=== PATIENT | female | born 1995 | race African-American/Black ===

== ENCOUNTER 2019-02-20 18:14 | Observation (INO) | payer BC, SELFPAY ==
[2019-02-20 20:50] VITALS: BMI 32.0
--- NOTE | 2019-03-28 11:41 | PM.OBTRLD ---
OB - Triage/Final Diagnosis Final Diagnosis (1) contractions: Code(s): O47.9 - False labor, unspecified Status: Acute
== END 2019-02-20 21:00 | disposition home or self-care (01) ==
PROVIDERS: Admitting Provider Obstetrics & Gynecology; Visit Provider Obstetrics & Gynecology
DX: O47.03 False labor before 37 completed weeks of gestation, third trimester (principal); Z3A.36 36 weeks gestation of pregnancy
CPT/HCPCS: G0378; G0379

== ENCOUNTER 2019-03-13 05:40 | Inpatient (IN) | payer BC, SELFPAY ==
[2019-03-13] VITALS (128 sets, daily range): BP systolic 88–136; BP diastolic 40–91; PULSE 60–159; RESP 17; TEMP 36.7–37.6; O2SAT 91–100; BMI 33.2
[2019-03-13 06:47] LABS: Basophils Percent Auto 0.2 % (0.2-1.2); Eosinophils Absolute Auto 0.2 K/mm3 (0-0.3); Eosinophils Percent Auto 2.1 % (0-4.4); Hematocrit 34.6 % (37.0-47.0); Hemoglobin 11.1 g/dL (12.0-15.0); Immature Granulocyte Absolute 0.07 K/mm3 (0.00-0.031); Immature Granulocyte Percent A 0.8 % (0-0.5); Lymphocytes Absolute Auto 1.93 K/mm3 (0.9-3.2); Mean Corpuscular HGB Conc 32.1 g/dl (32-36); Mean Corpuscular Hemoglobin 26.6 pg (26-34); Monocytes Absolute Auto 0.7 K/mm3 (0.1-0.6); Monocytes Percent Auto 7.5 % (2.6-8.5); Neutrophils Absolute Auto 6.3 K/mm3 (1.3-6.7); Neutrophils Percent Auto 68.4 % (45.5-73.1); Platelet Count Result 256 k/mm3 (150-375); Red Blood Count 4.17 M/mm3 (4.2-5.4); Red Cell Distribution Width 14.6 % (11.5-14.5); White Blood Count 9.2 K/mm3 (4.5-10.0)
[2019-03-13] MEDS: LACTATED RINGERS 1,000 ML 125 ML IV CONT ×3 (07:02→15:10)
[2019-03-13] MEDS: AMPICILLIN 2 GM/NS 100 ML 2 GM/100 ML BAG IVPB (07:18)
--- NOTE | 2019-03-13 07:28 | WPDOBADMIT ---
Obstetrics - Admit Note Admission Note: record reviewed. No pertinent additions to the history and/or any subsequent changes in the physical findings that are not consistent with the expected course of the were found. Additions to the history and/or subsequent changes in the physical findings follow. G1 at 39+2 for induction of labor. Cervix tight 80/-2. AROM with copious clear fluid. GBS + so continue antibiotics and continue pitocin..
--- NOTE | 2019-03-13 07:52 | LDADM ---
This patient, Carli Taylor, was admitted to Labor/Delivery/Recovery 105 on 03/13/19 at 05:40. Plans for labor, pain management and were discussed with patient. Patient/family oriented to hospital policies and general routines including ID bracelet, bed and alarms, visiting hours, pain management, procedures, bathroom and other care routines, personal items, smoking policy, room service/diet and guest tray routines, infant security routines, and visiting hours. Patient/Family are encouraged to report perceived risks to care and to ask questions if they do not understand what they are told or what they should do. See OBIX for further documentation.
--- NOTE | 2019-03-13 11:35 | WPDANESEPP ---
Anes - Eval Pre Procedure Procedure: Labor Epidural Date/Time: 03/13/19 11:35 Surgeon: Jacky Preop Diagnosis: Labor Pain Pre Op Diagnosis: IOL Patient Data Age: 24 Gender: F Height: 5 ft 5 in Weight: 90.5 kg Last Vital Signs Temp 36.7 C 03/13/19 07:51 Pulse 88 03/13/19 11:34 BP 106/64 03/13/19 11:34 Pulse Ox 98 03/13/19 11:32 Allergies Allergy/AdvReac Type Severity Reaction Status Date / Time coconut Allergy Intermediate Wheezing Verified 02/12/19 04:19 cat dander Allergy Wheezing Verified 02/15/19 12:59 Home Medications Medication Instructions Recorded Confirmed Type sertraline 50 mg PO DAILY 01/30/19 03/13/19 History PNV cmb#95-ferrous fumarate-FA 1 tablet PO DAILY 02/12/19 03/13/19 History [] ferrous sulfate [Iron (ferrous 325 mg PO DAILY 02/15/19 02/20/19 History sulfate)] Laboratory Tests 03/13/19 03/13/19 03/13/19 06:41 06:41 06:41 WBC 9.2 K/mm3 K/mm3 (4.5-10.0) RBC 4.17 M/mm3 L M/mm3 (4.2-5.4) Hgb 11.1 g/dL L g/dL (12.0-15.0) Hct 34.6 % L % (37.0-47.0) MCV 83.0 fl fl (80-100) MCH 26.6 pg pg (26-34) MCHC 32.1 g/dl g/dl (32-36) RDW 14.6 % H % (11.5-14.5) Plt Count 256 k/mm3 k/mm3 (150-375) MPV 11.0 fl H fl (7.4-10.4) Immature Gran % (Auto) 0.8 % H % (0-0.5) Neut % (Auto) 68.4 % % (45.5-73.1) Lymph % (Auto) 21.0 % % (18.3-44.2) [place] % (Auto) 7.5 % % (2.6-8.5) Eos % (Auto) 2.1 % % (0-4.4) Baso % (Auto) 0.2 % % (0.2-1.2) Lymph # (Auto) 1.93 K/mm3 K/mm3 (0.9-3.2) [place] # (Auto) 0.7 K/mm3 H K/mm3 (0.1-0.6) Eos # (Auto) 0.2 K/mm3 K/mm3 (0-0.3) Baso # (Auto) 0.0 K/mm3 K/mm3 (0.0-0.1) Abs Immat Gran (auto) 0.07 K/mm3 H K/mm3 (0.00-0.031) Absolute Neuts (auto) 6.3 K/mm3 K/mm3 (1.3-6.7) Absolute Nucleated RBC 0.0 K/mm3 K/mm3 (0.0-0.012) Nucleated RBC % 0.0 % % (0.0-0.2) RPR Pending Blood Type A Positive Antibody Screen Negative : gestational age (LYLA 03/18/19) Patient hx anesthesia problems: none Family hx anesthesia problems: none [facility] Family History Family History Other Unknown family medical history Social History Social History Smoking status: Never smoker Substance use: never Gender identity (if verbalized by the patient): Female Spiritual care concerns: No Exam Day of Procedure 03/13/19 11:35 Patient weight: overweight Heart: regular rate and rhythm Lungs: normal air movement Airway: Mallampati scale class II Neurological: alert and oriented
[2019-03-13] MEDS: AMPICILLIN 1 GM/NS 50 ML 1 GM/50 ML BAG IVPB ×2 (12:12→15:50)
[2019-03-13] MEDS: SODIUM CHLORIDE 0.9% IV 300 ML 600 ML I-UTERINE (15:10)
--- NOTE | 2019-03-13 16:29 | PM.OBPRVD ---
OB - Delivery Note Procedure Delivery date: 03/13/19 Procedure: events: Labor Induction Intrapartal events: None Induction method: AROM and per pitocin protocol Delivery monitor: external FHT Route of delivery: Laceration description: Perineal - 1st Degree (right suture, left more superficial and hemostatic without sutures) Delivery repair: vicryl (3-0 perineum and right periurethral) Specimen: No Estimated blood loss (mL): 142 Anesthesia type: Epidural Disposition: floor Baby Date of : 03/13/19 Time of : 16:10 Weeks of gestation at delivery: 39 gender: Female Weight (pounds): 7 Weight (ounces): 9 position: Right Occiput Anterior Placenta delivery description: Spontaneous cord vessel description: 3 Vessels and Clamped/Cut score one minute: 8 score five minutes: 9
[2019-03-13] MEDS: ACETAMINOPHEN 325 MG TABLET 650 MG PO (18:15)
[2019-03-13] MEDS: WITCH HAZEL 40 PADS 1 PAD TOPICAL (18:59)
[2019-03-13] MEDS: BENZOCAINE 20% AER SPR (*SP) 56 GM CAN 1 SPRAY TOPICAL (18:59)
--- NOTE | 2019-03-13 19:13 | OBPPTRN ---
Patient transferred to post room #292 via (wheelchair) - infant arrived via crib. Support person present. Oriented to unit, room, information board, rooming in, admission packet and security measures. Patient verbalizes understanding.
[2019-03-13] MEDS: IBUPROFEN 600 MG TABLET PO (20:10)
[2019-03-14 05:51] LABS: Hematocrit 34.6 % (37.0-47.0); Hemoglobin 11.2 g/dL (12.0-15.0)
[2019-03-14 07:16] LABS: Rapid Plasma Reagin Non-Reactive (NonReactive)
--- NOTE | 2019-03-14 07:38 | PM.OBPNVD ---
OB - PN: Subj Subjective Date/time seen: 03/14/19 07:38 OB - PN: Obj Data Labs CBC & Chem 7: 03/14/19 05:06 Labs: Laboratory Results - last 24 hr 03/13/19 03/13/19 03/14/19 06:41 06:41 05:06 Hgb 11.2 L Hct 34.6 L RPR Non-reactive Blood Type A Positive Antibody Screen Negative OB - PN A/P Plan day: 1 Plan: routine care Time Spent With Patient Time: Total time spent is greater than 50% in coordination of care (as documented) at patient's floor/unit and/or counseling patient: Review of Systems Review of Systems: All systems reviewed & are unremarkable except as noted in HPI and below Exam Const: General: comfortable Resp: Effort & Inspection: normal respiratory effort Psych: Appearance: grossly normal Mental Status: mental status grossly normal Affect: normal affect
--- NOTE | 2019-03-14 08:00 | PC.NURSE ---
PT introductions made and plan of care discussed per post , pain management, breast/bottle feeding, daily care activities. PT verbalized understanding of such care.
[2019-03-14 08:50] VITALS: BP 107/65; PULSE 94; RESP 16; TEMP 36.6; O2SAT 98
[2019-03-14] MEDS: SERTRALINE HCL 50 MG TABLET PO (08:55)
[2019-03-14] MEDS: MULTIVIT/MIN/PREN/FOL AC/IRON TABLET 1 TAB PO (08:55)
[2019-03-14] MEDS: DOCUSATE SODIUM 100 MG CAPSULE PO ×2 (08:56→17:32)
[2019-03-14] MEDS: IBUPROFEN 600 MG TABLET PO ×3 (08:56→22:15)
--- NOTE | 2019-03-14 09:27 | WPDANLDPN2 ---
Anes-Prog Note L&D Date/Time: 03/14/19 09:27 Comfortable throughout: labor and delivery Neuraxial method: epidural Epidural/Spinal procedure site: clean & non-tender Neuro status: Neuro function grossly intact. Cardiovascular status: normal Respiratory status: normal Airway patency: baseline Mental status: baseline Post-Op hydration status: normal Vital Signs: Last Vital Signs Temp 36.8 C 03/13/19 19:45 Pulse 95 03/13/19 19:45 Resp 17 03/13/19 19:45 BP 122/62 03/13/19 19:45 Pulse Ox 100 03/13/19 16:05 I/O: Intake & Output 03/13/19 03/14/19 03/14/19 23:59 07:59 15:59 Intake Total 1550 Output Total 85 Balance 1465 Post-procedural complaints: none Patient feedback: Patient satisfied with anesthetic care.
--- NOTE | 2019-03-14 17:00 | PC.NURSE ---
Patient viewed the discharge video Mother & Baby Care, The First Two Weeks . Patient was given the opportunity and encouraged to ask questions. Patient verbalized understanding of information shared and has been given the mother/baby guide for home reference.
[2019-03-14 19:37] VITALS: BP 111/58; PULSE 76; RESP 18; TEMP 36.8
[2019-03-15 07:30] VITALS: BP 115/60; PULSE 89; RESP 16; TEMP 36.9; O2SAT 96
--- NOTE | 2019-03-15 07:37 | P.PNOB_ITS ---
OB - PN: Subj Subjective Date/time seen: 03/15/19 07:37 Patient comments: no complaints, pain well controlled and other (Lochia similar to menses) [place] baby status: doing well OB - PN: Obj Data Labs CBC & Chem 7: 03/14/19 05:06 OB - PN A/P Plan day: 2 (s/p vaginal delivery, doing well) Plan: routine care, discharge home and other (Follow up in office in 4 weeks) Time Spent With Patient Time: Total time spent is greater than 50% in coordination of care (as documented) at patient's floor/unit and/or counseling patient: Exam Const: General: no acute distress GI: Inspection: other (Fundus firm and nontender below umbilicus) GI Palp: Yes Soft to palpation and No Tenderness to palpation present (GI) Extrem: General: no edema
--- NOTE | 2019-03-15 07:37 | PM.OBDSVD ---
DS: Diagnosis Discharge Diagnosis (1) FTND (full term normal delivery): Code(s): O80 - Encounter for full-term uncomplicated delivery Status: Acute OB - DS: Summary OB Procedures : None OB Procedures Intrapartum: Spontaneous Vag Delivery OB Procedures: : None Peripartum Data Delivery Method: Natural Vaginal Laceration description: Perineal - 1st Degree complications: none Status at Discharge Functional status at discharge: independent ambulation Overall status at discharge: patient is progressing back to baseline Time Spent with Patient Time attestation: Total time spent providing and/or coordinating discharge services: Time spent: Less than 30 minutes Discharge Plan Discharge Attending physician on discharge: Itzel Rico Discharging Clinician: Itzel Rico Patient Disposition: Home, Self-Care Activity: may shower and pelvic rest Diet: regular Patient Instructions: Antibiotic Form Stand Alone Forms: General Discharge Information Follow-up/Referrals: Itzel Rico MD [Physician] - 4 Weeks Discharge Medications: New hydrocodone-acetaminophen 5-325 mg Tablet 1 tab PO Q3H PRN (Reason: Pain Rated 5 Or Less) Qty: 20 RF: 0 ibuprofen 600 mg Tablet 600 mg PO Q6H PRN (Reason: Cramping) Qty: 60 RF: 0 Continued ferrous sulfate [Iron (ferrous sulfate)] 325 mg (65 mg iron) Tablet 325 mg PO DAILY RF: 0 sertraline 50 mg tablet 50 mg PO DAILY RF: 0 PNV cmb#95-ferrous fumarate-FA [] 28 mg iron- 800 mcg Tablet 1 tablet PO DAILY RF: 0 Date of admission: 03/13/19 05:40 Primary Care Provider: UNKNOWN,DOCTOR Admitting Provider: Itzel Rico Attending physician on admission: Itzel Rico
[2019-03-15] MEDS: MULTIVIT/MIN/PREN/FOL AC/IRON TABLET 1 TAB PO (09:43)
[2019-03-15] MEDS: DOCUSATE SODIUM 100 MG CAPSULE PO (09:43)
[2019-03-15] MEDS: IBUPROFEN 600 MG TABLET PO (09:43)
[2019-03-15] MEDS: SERTRALINE HCL 50 MG TABLET PO (09:44)
--- NOTE | 2019-03-15 12:45 | PC.NURSE ---
Pt received discharge instructions per protocol and verbalized understanding of such instructions.
--- NOTE | 2019-03-15 13:03 | PC.NURSE ---
PT discharged to home ambulatory accompanied by family and to waiting car. Follow up appts confirmed.
[2019-03-16 10:39] VITALS: BP 119/69; PULSE 86; RESP 20; TEMP 36.8
== END 2019-03-15 13:03 | disposition home or self-care (01) | DRG 807 ==
LOC: ANHLDR 05:53 → ANHOB2 19:18
PROVIDERS: Admitting Provider Obstetrics & Gynecology; Visit Provider Obstetrics & Gynecology
DX: O99.824 Streptococcus B carrier state complicating childbirth (principal); Z37.0 Single live birth; Z3A.39 39 weeks gestation of pregnancy; O70.0 First degree perineal laceration during delivery; O71.82 Other specified trauma to perineum and vulva; O36.8330 Maternal care for abnormalities of the fetal heart rate or rhythm, third trimester, not applicable or unspecified; O99.344 Other mental disorders complicating childbirth; F32.9 Major depressive disorder, single episode, unspecified
CPT/HCPCS: 36415; 85014; 85018; 85025; 86592; 86850; 86900; 86901; A9270; J0290; J2590; J2795; J3010; J7030; J7120